=== PATIENT | male | born 1980 | race Caucasian/White ===

== ENCOUNTER 2016-11-30 11:36 | Inpatient (IN) | payer OTHER ==
[2016-11-30 12:06] VITALS: BMI 21.2
--- NOTE | 2016-11-30 13:21 | HP ---
CIWA Score - CIWA Score Nausea/Vomitin Muscle Tremors: 3 Anxiety: 3 Agitation: 3 Paroxysmal Sweats: 2 Orientation: 0-Oriented Tacttile Disturbances: 2-Mild Itch/Numbness/Burn Auditory Disturbances: 2-Mild Harshness/Frighten Visual Disturbances: 2-Mild Sensitivity Headache: 2-Mild CIWA-Ar Total Score: 22 Admission ROS BHS - HPI Chief Complaint: i need help to stop drinking alcohol,cocaine,pcp Allergies/Adverse Reactions: Allergies Allergy/AdvReac Type Severity Reaction Status Date / Time shrimp Allergy Severe Difficulty Verified 11/30/16 13:40 Breathing No Known Drug Allergies Allergy Verified 11/30/16 13:40 History of Present Illness: this 36 years old male with alcohol,cocaine and pcp dependence,withdrawal symptom,last detox 07/11 [place] syncope hypertension non compliance old fx of left hand asthma anxiety,depression,insomnia longest period of sobriety Exam Limitations: No Limitations - Ebola screening Have you traveled outside of the country in the last 21 days: No Have you had contact with anyone from an Ebola affected area: No Have you been sick,other than usual withdrawal symptoms: No Do you have a fever: No - Review of Systems Constitutional: Loss of Appetite, Malaise, Night Sweats, Changes in sleep, Unintentional Wgt. Loss EENT: reports: Nose Congestion Respiratory: reports: No Symptoms reported (asthma) Cardiac: reports: No Symptoms Reported GI: reports: Diarrhea, Nausea, Vomiting, Indigestion : reports: No Symptoms Reported Musculoskeletal: reports: Back Pain, Muscle Pain Integumentary: reports: Dryness Neuro: reports: Tremors Endocrine: reports: No Symptoms Reported Hematology: reports: No Symptoms Reported Psychiatric: reports: Anxious, Depressed (insomnia) Patient History - Patient Medical History Hx Anemia: No Hx Asthma: Yes (on vntolin inhaler) Hx Chronic Obstructive Pulmonary Disease (COPD): No Hx Cancer: No Hx Cardiac Disorders: No Hx Congestive Heart Failure: No Hx Hypertension: Yes (non compliance [facility] 2010) Hx Hypercholesterolemia: No Hx Pacemaker: No HX Cerebrovascular Accident: No Hx Seizures: No Hx Dementia: No Hx Diabetes: No Hx Gastrointestinal Disorders: No Hx Liver Disease: No Hx Genitourinary Disorders: No Hx Sexually Transmitted Disorders: No Hx Renal Disease (ESRD): No Hx Thyroid Disease: No Hx Human Immunodeficiency Virus (HIV): No (last 07/11 negative) Hx Hepatitis C: No Hx Depression: Yes (anxiety,insomnia) Hx Suicide Attempt: No Hx Bipolar Disorder: No Hx Schizophrenia: No Other Medical History: no suiidal,no homicidal,fx of left hand - Patient Surgical History Past Surgical History: Yes Hx Orthopedic Surgery: Yes (srgery for fx of left hand in [facility]) - PPD History Previous Implant?: Yes Documented Results: Negative w/o proof Implanted On Prior [facility] Admission?: No PPD to be Administered?: Yes - Smoking Cessation Smoking history: Current every day smoker Have you smoked in the past 12 months: Yes Aproximately how many cigarettes per day: 5 Cigars Per Day: 0 Hx Chewing Tobacco Use: No Initiated information on smoking cessation: Yes 'Breaking Loose' booklet given: 11/30/16 - Substance & Tx. History Hx Alcohol Use: Yes Hx Substance Use: Yes Substance Use Type: Alcohol, Cocaine Hx Substance Use Treatment: Yes (07/11 [facility]) - Substances Abused Alcohol Route: Oral Frequency: Daily Amount used: 6 of 24 ozs of beer Age of first use: 13 Date of Last Use: 11/29/16 Marijuana/Hashish Route: Smoking Frequency: 1-3 times last 30 days Amount used: 10$ Age of first use: 13 Date of Last Use: 11/29/16 PCP Route: Smoking Frequency: 1-3 times last 30 days Amount used: 10$ Age of first use: 27 Date of Last Use: 11/08/16 Family Disease History - Family Disease History Family Disease History: Other: Mother (alcohol) Admission Physical Exam BHS - Vital Signs Vital Signs: Vital Signs - 24 hr 11/30/16 11:55 Temperature 97.8 F Pulse Rate 75 Respiratory 18 Rate Blood Pressure 164/111 - Physical General Appearance: Yes: Moderate Distress, Tremorous, Irritable, Sweating, Anxious HEENTM: Yes: Rhinorrhea Respiratory: Yes: Lungs Clear Neck: Yes: Within Normal Limits Breast: Yes: Within Normal Limits Cardiology: Yes: Within Normal Limits, Regular Rhythm, Regular Rate, S1, S2 Abdominal: Yes: Within Normal Limits, Normal Bowel Sounds, Non Tender, Soft Genitourinary: Yes: Within Normal Limits Back: Yes: Muscle Spasm Musculoskeletal: Yes: Back pain, Muscle Pain Extremities: Yes: Tremors 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 NML intact, Fully Oriented, Alert, Motor Strength 5/5 Integumentary: Yes: Dry Lymphatic: Yes: Within Normal Limits - Diagnostic (1) Alcohol dependence with uncomplicated withdrawal Current Visit: Yes Status: Acute (2) Cannabis dependence Current Visit: Yes Status: Acute (3) Syncope Current Visit: Yes Status: Acute (4) Essential hypertension Current Visit: Yes Status: Acute (5) Nicotine dependence Current Visit: Yes Status: Acute (6) PCP (phencyclidine) abuse Current Visit: Yes Status: Acute (7) Anxiety and depression Current Visit: Yes Status: Acute (8) Insomnia Current Visit: Yes Status: Acute (9) Fracture of left hand Current Visit: Yes Status: Acute Cleared for Admission S - Detox or Rehab [facility] Level of Care: Medically Managed Detox Regimen/Protocol: Librium [facility] Breath Alcohol Content Breath Alcohol Content: 0.019 Urine Drug Screen - Results Drug Screen Negative: No Urine Drug Screen Results: THC-Marijuana
[2016-11-30] MEDS ORDERED: IBUPROFEN 400 MG TABLET (FP) PO PRN (14:20)
[2016-11-30] MEDS ORDERED: MAGNESIUM CITRATE 300 ML BOTTLE PO PRN (14:20)
[2016-11-30] MEDS ORDERED: P-EPHED 60MG/TRIPROLIDI 2.5MG TABLET PO PRN (14:20)
[2016-11-30] MEDS ORDERED: MAG HYDROX/AL HYDROX/SIMETH 30 ML UNIT-DOSE CUP PO PRN (14:20)
[2016-11-30] MEDS ORDERED: guaiFENesin/D-METHORPHAN HB 10 ML UNIT-DOSE CUPS PO PRN (14:20)
[2016-11-30] MEDS ORDERED: LOPERAMIDE HCL 2 MG CAPSULE PO PRN (14:20)
[2016-11-30] MEDS ORDERED: hydrOXYzine PAMOATE 50 MG CAPSULE (FP) PO PRN (14:20)
[2016-11-30] MEDS ORDERED: ACETAMINOPHEN 325 MG TABLET (FP) PO PRN (14:20)
[2016-11-30] MEDS ORDERED: MENTHOL/PHENOL 1 EACH UD MM PRN (14:20)
[2016-11-30] MEDS ORDERED: chlordiazePOXIDE HCL 25 MG CAPSULE PO PRN (14:20)
[2016-11-30] MEDS ORDERED: MAGNESIUM HYDROX 2400MG/30ML ORAL SUSPENSION 30 ML CUP PO PRN (14:20)
[2016-11-30] MEDS ORDERED: chlordiazePOXIDE HCL 25 MG CAPSULE PO ONE (15:10)
[2016-11-30] MEDS: amLODIPine BESYLATE 10 MG TABLET (FP) PO SCH (15:15)
[2016-11-30] MEDS: HYDROCHLOROTHIAZIDE 25 MG TABLET (FP) PO SCH (15:15)
[2016-11-30] MEDS: chlordiazePOXIDE HCL 25 MG CAPSULE PO SCH ×2 (17:14→22:30)
[2016-11-30 17:25] LABS: URINE APPEARANCE CLEAR; URINE BILIRUBIN NEGATIVE (NEGATIVE); URINE BLOOD NEGATIVE (NEGATIVE); URINE COLOR LTYELLOW; URINE GLUCOSE (UA) 3+ (NEGATIVE); URINE KETONE NEGATIVE (NEGATIVE); URINE LEUK ESTERASE NEGATIVE (NEGATIVE); URINE NITRITE NEGATIVE (NEGATIVE); URINE PROTEIN NEGATIVE (NEGATIVE); URINE UROBILINOGEN NEGATIVE E.U./dl (0.2-1.0)
[2016-11-30] MEDS ORDERED: cloNIDine HCL 0.1 MG TABLET PO PRN (20:28)
[2016-11-30] MEDS: THIAMINE HCL 100 MG TABLET (FP) PO SCH (22:30)
[2016-12-01 00:45] LABS: URINE APPEARANCE CLEAR; URINE BILIRUBIN NEGATIVE (NEGATIVE); URINE BLOOD NEGATIVE (NEGATIVE); URINE COLOR DKYELLOW; URINE GLUCOSE (UA) NEGATIVE (NEGATIVE); URINE KETONE NEGATIVE (NEGATIVE); URINE LEUK ESTERASE NEGATIVE (NEGATIVE); URINE NITRITE NEGATIVE (NEGATIVE); URINE UROBILINOGEN NEGATIVE E.U./dl (0.2-1.0)
[2016-12-01 00:56] LABS: URINE PROTEIN 1+ (NEGATIVE)
[2016-12-01 01:10] LABS: URINE HYALINE CAST 3 /lpf; URINE MUCUS MANY; URINE RBC <1 /hpf (0-3); URINE WBC 1 /hpf (3-5)
[2016-12-01] MEDS: chlordiazePOXIDE HCL 25 MG CAPSULE PO SCH ×4 (05:40→22:24)
[2016-12-01] MEDS: HYDROCHLOROTHIAZIDE 25 MG TABLET (FP) PO SCH (10:09)
[2016-12-01] MEDS: amLODIPine BESYLATE 10 MG TABLET (FP) PO SCH (10:09)
[2016-12-01] MEDS: PRENATAL VITAMINS W/ FOLIC ACID TABLET (FP) PO SCH (10:09)
[2016-12-01 10:25] LABS: ALBUMIN 4.2 g/dl (3.4-5.0); ALK PHOS 89 U/L (45-117); ANION GAP 10 (8-16); BILIRUBIN,TOTAL 0.4 mg/dL (0.2-1.0); CALCIUM 9.3 mg/dL (8.5-10.1); CO2 27 mmol/L (21-32); CREATININE 0.9 mg/dL (0.7-1.3); GLUCOSE,RANDOM 86 mg/dL (74-106); SGOT/AST 85 U/L (15-37); SGPT/ALT 103 U/L (12-78); TOT PROT 7.8 g/dl (6.4-8.2)
[2016-12-01 11:14] LABS: MCH 31.6 pg (25.7-33.7); MCHC 33.8 g/dl (32.0-35.9); MEAN CELL VOLUME 93.3 fl (80-96); MEAN PLT VOLUME 8.8 fl (7.5-11.1); PLATELET COUNT 297 K/MM3 (134-434); RDW 12.8 % (11.9-15.9); WHITE BLOOD COUNT 5.6 K/mm3 (4.0-10.0)
--- NOTE | 2016-12-01 12:07 | PN ---
S CIWA - CIWA Score Nausea/Vomitin-No Nausea/No Vomiting Muscle Tremors: 3 Anxiety: 4-Mod. Anxious/Guarded Agitation: 3 Paroxysmal Sweats: 3 Orientation: 0-Oriented Tacttile Disturbances: 0-None Auditory Disturbances: 0-None Visual Disturbances: 0-None Headache: 0-None Present CIWA-Ar Total Score: 13 BHS Progress Note (SOAP) Subjective: ANXIETY,TREMORS,SWEATING,INTERRUPTED SLEEP,RESTLESS Objective: 12/01/16 12:08 Vital Signs - 8 hr 12/01/16 12/01/16 06:10 09:35 Temperature 96.3 F L 95.8 F L Pulse Rate 81 72 Respiratory 18 20 Rate Blood Pressure 139/101 137/98 Laboratory Tests 11/30/16 12/01/16 12/01/16 15:00 00:30 06:00 WBC 5.6 RBC 4.71 Hgb 14.9 Hct 44.0 MCV 93.3 MCHC 33.8 RDW 12.8 Plt Count 297 MPV 8.8 Sodium Potassium Chloride Carbon Dioxide Anion Gap BUN Creatinine Creat Clearance w eGFR Random Glucose Calcium Total Bilirubin AST ALT Alkaline Phosphatase Total Protein Albumin Urine Color Ltyellow Dkyellow Urine Appearance Clear Clear Urine pH 7.0 5.0 D Ur Specific [place] 1.010 1.025 Urine Protein Negative 1+ H Urine Glucose (UA) 3+ H Negative Urine Ketones Negative Negative Urine Blood Negative Negative Urine Nitrite Negative Negative Urine Bilirubin Negative Negative Urine Urobilinogen Negative Negative Ur Leukocyte Esterase Negative Negative Urine RBC <1 Urine WBC 1 Ur Epithelial Cells Rare Hyaline Casts 3 Urine Mucus Many 12/01/16 06:00 WBC RBC Hgb Hct MCV MCHC RDW Plt Count MPV Sodium 141 Potassium 4.1 Chloride 104 Carbon Dioxide 27 Anion Gap 10 BUN 6 L Creatinine 0.9 Creat Clearance w eGFR > 60 Random Glucose 86 Calcium 9.3 Total Bilirubin 0.4 AST 85 H ALT 103 H Alkaline Phosphatase 89 Total Protein 7.8 Albumin 4.2 Urine Color Urine Appearance Urine pH Ur Specific [place] Urine Protein Urine Glucose (UA) Urine Ketones Urine Blood Urine Nitrite Urine Bilirubin Urine Urobilinogen Ur Leukocyte Esterase Urine RBC Urine WBC Ur Epithelial Cells Hyaline Casts Urine Mucus LABS NOTED Assessment: 12/01/16 12:08 WITHDRAWAL SX. Plan: CONTINUE DETOX
--- NOTE | 2016-12-01 15:44 | CONSULT ---
[facility] Psychiatric Consult - Data Date of interview: 12/01/16 Admission source: [facility] Identifying data: First admission to [facility] for this 36 y/o male seeking detox treatment on for alcohol and cocaine dependence.Patient is single,a father of two,homeless,unemployed and supported on food stamps. Substance Abuse History: - Smoking Cessation. Smoking history: Current every day smoker. Have you smoked in the past 12 months: Yes. Aproximately how many cigarettes per day: 5. Cigars Per Day: 0. Hx Chewing Tobacco Use: No. Initiated information on smoking cessation: Yes. 'Breaking Loose' booklet given : 11/30/16. - Substance & Tx. History. Hx Alcohol Use: Yes. Hx Substance Use : Yes. Substance Use Type: Alcohol, Cocaine. Hx Substance Use Treatment: Yes ( 07/11 [facility]). - Substances Abused. Alcohol. Route: Oral. Frequency : Daily. Amount used: 6 of 24 ozs of beer. Age of first use: 13. Date of Last Use: 11/29/16. Marijuana/Hashish. Route: Smoking. Frequency: 1-3 times last 30 days. Amount used: 10$. Age of first use: 13. Date of Last Use : 11/29/16. PCP. Route: Smoking. Frequency: 1-3 times last 30 days. Amount used: 10$. Age of first use: 27. Date of Last Use: 11/08/16. Confirmed by patient. Medical History: Significant for bronchial asthma,hypertensionwithdrawal related seizures and a history of orthosurgery for fracture of left hand. Psychiatric History: Patient reports a history of one psychiatric hospitalization in his lifetimeIt occurred four years ago in the context of a drug intoxication (kept for two days at [facility] because of agitation, paranoia and combative behavior).Discharged without medications,according to patient.Patient states that he is currently going through the intake process at [facility] [place].Awaiting formal evaluation by the psychiatrist.In the meantime,he is not on psychotropic medications.Mr Gates indicates his intent to abstain from prescribed psychotropic drugs until intake proces completed at [facility].No history of suicide attempts. Physical/Sexual Abuse/Trauma History: No reported history of sexual abuse.Stressors :homelessness,unemployment,strained interpersonal relationships, financial difficulties.Mr Gates indicates that his current social situation is a cause of stress/anxiety. Additional Comment: Urine Drug Screen Results: THC-Marijuana.Noted. Mental Status Exam - Mental Status Exam Alert and Oriented to: Time, Place Cognitive Function: Good Patient Appearance: Well Groomed Mood: Nervous, Anxious, Apprehensive Affect: Mood Congruent Patient Behavior: Fatigued, Talkative, Appropriate, Cooperative Speech Pattern: Clear, Appropriate Voice Loudness: Normal Thought Process: Goal Oriented Thought Disorder: Not Present Hallucinations: Denies Suicidal Ideation: Denies Homicidal Ideation: Denies Insight/Judgement: Poor Appetite: Good Muscle strength/Tone: Normal Gait/Station: Normal Psychiatric Findings - Problem List ([place] 1, 2,3) (1) Alcohol dependence with uncomplicated withdrawal Current Visit: Yes Status: Acute (2) Cannabis dependence Current Visit: Yes Status: Acute (3) Nicotine dependence Current Visit: Yes Status: Acute (4) PCP (phencyclidine) abuse Current Visit: Yes Status: Acute (5) Substance induced mood disorder Current Visit: Yes Status: Acute (6) Essential hypertension Current Visit: Yes Status: Chronic (7) Fracture of left hand Current Visit: Yes Status: Acute (8) Insomnia Current Visit: Yes Status: Chronic - Initial Treatment Plan Initial Treatment Plan: Psychoeducation.Detoxification.Observation.
[2016-12-01] MEDS: diphenhydrAMINE HCL 50 MG CAPSULE PO PRN (22:23)
[2016-12-01] MEDS: THIAMINE HCL 100 MG TABLET (FP) PO SCH (22:24)
[2016-12-02] MEDS: chlordiazePOXIDE HCL 25 MG CAPSULE PO SCH ×2 (05:48→10:09)
[2016-12-02] MEDS: HYDROCHLOROTHIAZIDE 25 MG TABLET (FP) PO SCH (10:09)
[2016-12-02] MEDS: amLODIPine BESYLATE 10 MG TABLET (FP) PO SCH (10:09)
[2016-12-02] MEDS: PRENATAL VITAMINS W/ FOLIC ACID TABLET (FP) PO SCH (10:09)
[2016-12-02] MEDS: chlordiazePOXIDE 5 MG CAPSULE PO SCH ×2 (17:12→22:23)
[2016-12-02] MEDS: diphenhydrAMINE HCL 50 MG CAPSULE PO PRN (22:23)
[2016-12-02] MEDS: THIAMINE HCL 100 MG TABLET (FP) PO SCH (22:23)
--- NOTE | 2016-12-02 23:24 | PN ---
[facility] CIWA - CIWA Score Nausea/Vomitin-No Nausea/No Vomiting Muscle Tremors: 3 Anxiety: 4-Mod. Anxious/Guarded Agitation: 3 Paroxysmal Sweats: 3 Orientation: 0-Oriented Tacttile Disturbances: 0-None Auditory Disturbances: 0-None Visual Disturbances: 0-None Headache: 0-None Present CIWA-Ar Total Score: 13 S Progress Note (SOAP) Subjective: ANXIETY,TREMORS,SWEATING,INTERRUPTED SLEEP,RESTLESS. Objective: 12/02/16 23:23 Vital Signs - 8 hr 12/02/16 20:07 Temperature 97.3 F L Pulse Rate 12 L Respiratory 72 H Rate Blood Pressure 122/72 Assessment: 12/02/16 23:24 Plan: CONTINUE DETOX
[2016-12-03] MEDS: chlordiazePOXIDE 5 MG CAPSULE PO SCH ×2 (05:21→10:29)
[2016-12-03] MEDS: amLODIPine BESYLATE 10 MG TABLET (FP) PO SCH (10:29)
[2016-12-03] MEDS: PRENATAL VITAMINS W/ FOLIC ACID TABLET (FP) PO SCH (10:29)
[2016-12-03] MEDS: HYDROCHLOROTHIAZIDE 25 MG TABLET (FP) PO SCH (10:30)
--- NOTE | 2016-12-03 15:50 | PN ---
BHS Progress Note (SOAP) Subjective: Anxiety, sweating, interrupted sleep Objective: 12/03/16 15:46 Last Vital Signs Temp Pulse Resp BP Pulse Ox 98.4 F 83 18 126/89 12/03/16 13:47 12/03/16 13:47 12/03/16 13:47 12/03/16 13:47 Laboratory Tests 11/30/16 12/01/16 12/01/16 15:00 00:30 06:00 WBC 5.6 RBC 4.71 Hgb 14.9 Hct 44.0 MCV 93.3 MCHC 33.8 RDW 12.8 Plt Count 297 MPV 8.8 Sodium Potassium Chloride Carbon Dioxide Anion Gap BUN Creatinine Creat Clearance w eGFR Random Glucose Calcium Total Bilirubin AST ALT Alkaline Phosphatase Total Protein Albumin Urine Color Ltyellow Dkyellow Urine Appearance Clear Clear Urine pH 7.0 5.0 D Ur Specific [place] 1.010 1.025 Urine Protein Negative 1+ H Urine Glucose (UA) 3+ H Negative Urine Ketones Negative Negative Urine Blood Negative Negative Urine Nitrite Negative Negative Urine Bilirubin Negative Negative Urine Urobilinogen Negative Negative Ur Leukocyte Esterase Negative Negative Urine RBC <1 Urine WBC 1 Ur Epithelial Cells Rare Hyaline Casts 3 Urine Mucus Many RPR Titer 12/01/16 12/01/16 06:00 06:00 WBC RBC Hgb Hct MCV MCHC RDW Plt Count MPV Sodium 141 Potassium 4.1 Chloride 104 Carbon Dioxide 27 Anion Gap 10 BUN 6 L Creatinine 0.9 Creat Clearance w eGFR > 60 Random Glucose 86 Calcium 9.3 Total Bilirubin 0.4 AST 85 H ALT 103 H Alkaline Phosphatase 89 Total Protein 7.8 Albumin 4.2 Urine Color Urine Appearance Urine pH Ur Specific [place] Urine Protein Urine Glucose (UA) Urine Ketones Urine Blood Urine Nitrite Urine Bilirubin Urine Urobilinogen Ur Leukocyte Esterase Urine RBC Urine WBC Ur Epithelial Cells Hyaline Casts Urine Mucus RPR Titer Nonreactive Labs noted Assessment: 12/03/16 15:48 Withdrawal symptoms Plan: Continue detox
[2016-12-03] MEDS: chlordiazePOXIDE HCL 10 MG CAPSULE PO SCH ×2 (17:28→22:17)
[2016-12-03] MEDS: diphenhydrAMINE HCL 50 MG CAPSULE PO PRN (22:17)
[2016-12-03] MEDS: THIAMINE HCL 100 MG TABLET (FP) PO SCH (22:17)
[2016-12-04] MEDS: chlordiazePOXIDE HCL 10 MG CAPSULE PO SCH (05:31)
[2016-12-04 10:10] VITALS: BP 143/95; PULSE 82; TEMP 97
--- NOTE | 2016-12-04 10:23 | DS ---
[facility] Detox Discharge Summary Admission Date: 11/30/16 Discharge Date: 12/04/16 - History Present History: Alcohol Dependence, Cannabis Dependence, Pcp Dependence Pertinent Past History: HTN - Physical Exam Results Vital Signs: Vital Signs Temperature 97.0 F L 12/04/16 10:06 Pulse Rate 82 12/04/16 10:06 Respiratory Rate 18 12/04/16 10:06 Blood Pressure 143/95 12/04/16 10:06 O2 Sat by Pulse Oximetry (%) Pertinent Admission Physical Exam Findings: WITHDRAWAL SX. Laboratory Last Values WBC 5.6 K/mm3 (4.0-10.0) 12/01/16 06:00 RBC 4.71 M/mm3 (4.00-5.60) 12/01/16 06:00 Hgb 14.9 GM/dL (11.7-16.9) 12/01/16 06:00 Hct 44.0 % (35.4-49) 12/01/16 06:00 MCV 93.3 fl (80-96) 12/01/16 06:00 MCHC 33.8 g/dl (32.0-35.9) 12/01/16 06:00 RDW 12.8 % (11.9-15.9) 12/01/16 06:00 Plt Count 297 K/MM3 (134-434) 12/01/16 06:00 MPV 8.8 fl (7.5-11.1) 12/01/16 06:00 Sodium 141 mmol/L (136-145) 12/01/16 06:00 Potassium 4.1 mmol/L (3.5-5.1) 12/01/16 06:00 Chloride 104 mmol/L (98-107) 12/01/16 06:00 Carbon Dioxide 27 mmol/L (21-32) 12/01/16 06:00 Anion Gap 10 (8-16) 12/01/16 06:00 BUN 6 mg/dL (7-18) L 12/01/16 06:00 Creatinine 0.9 mg/dL (0.7-1.3) 12/01/16 06:00 Creat Clearance w eGFR > 60 (>60) 12/01/16 06:00 Random Glucose 86 mg/dL (74-106) 12/01/16 06:00 Calcium 9.3 mg/dL (8.5-10.1) 12/01/16 06:00 Total Bilirubin 0.4 mg/dL (0.2-1.0) 12/01/16 06:00 AST 85 U/L (15-37) H 12/01/16 06:00 ALT 103 U/L (12-78) H 12/01/16 06:00 Alkaline Phosphatase 89 U/L (45-117) 12/01/16 06:00 Total Protein 7.8 g/dl (6.4-8.2) 12/01/16 06:00 Albumin 4.2 g/dl (3.4-5.0) 12/01/16 06:00 Urine Color Dkyellow 12/01/16 00:30 Urine Appearance Clear 12/01/16 00:30 Urine pH 5.0 (5.0-8.0) D 12/01/16 00:30 Ur Specific [place] 1.025 (1.001-1.035) 12/01/16 00:30 Urine Protein 1+ (NEGATIVE) H 12/01/16 00:30 Urine Glucose (UA) Negative (NEGATIVE) 12/01/16 00:30 Urine Ketones Negative (NEGATIVE) 12/01/16 00:30 Urine Blood Negative (NEGATIVE) 12/01/16 00:30 Urine Nitrite Negative (NEGATIVE) 12/01/16 00:30 Urine Bilirubin Negative (NEGATIVE) 12/01/16 00:30 Urine Urobilinogen Negative E.U./dl (0.2-1.0) 12/01/16 00:30 Ur Leukocyte Esterase Negative (NEGATIVE) 12/01/16 00:30 Urine RBC <1 /hpf (0-3) 12/01/16 00:30 Urine WBC 1 /hpf (3-5) 12/01/16 00:30 Ur Epithelial Cells Rare /hpf (FEW) 12/01/16 00:30 Hyaline Casts 3 /lpf 12/01/16 00:30 Urine Mucus Many 12/01/16 00:30 RPR Titer Nonreactive (NONREACTIVE) 12/01/16 06:00 LABS NOTED - Treatment Hospital Course: Detox Protocol Followed, Detoxed Safely, Responded well, Discharged Condition Good, Rehab Referral Accepted - Medication Discharge Medications: Ambulatory Orders Amlodipine Besylate [Norvasc -] 10 mg PO DAILY 11/30/16 Hydrochlorothiazide [Hctz -] 25 mg PO DAILY 11/30/16 - Diagnosis (1) Alcohol dependence with uncomplicated withdrawal Current Visit: Yes Status: Acute (2) Nicotine dependence Current Visit: Yes Status: Acute Qualifiers: Nicotine product type: cigarettes Substance use status: uncomplicated Qualified Code(s): F17.210 - Nicotine dependence, cigarettes, uncomplicated (3) PCP (phencyclidine) abuse Current Visit: Yes Status: Acute (4) Essential hypertension Current Visit: Yes Status: Chronic (5) Substance induced mood disorder Current Visit: Yes Status: Acute - AMA Did Patient Leave Against Medical Advice: No
--- NOTE | 2016-12-06 09:45 | EKG ---
Test Reason : Blood Pressure : / mmHG Vent. Rate : 072 BPM Atrial Rate : 072 BPM P-R Int : 130 ms QRS Dur : 078 ms QT Int : 380 ms P-R-T Axes : 050 018 045 degrees QTc Int : 416 ms NORMAL SINUS RHYTHM NONSPECIFIC ST ABNORMALITY ABNORMAL ECG NO PREVIOUS ECGS AVAILABLE Confirmed by SABA DAVIS, WESTON ([id number]) on 12/06/2016 9:45:09 AM Referred By: Jared Perez Confirmed By:WESTON WALTER MD
== END 2016-12-04 10:46 | disposition home or self-care (01) | DRG 775 ==
LOC: YASAS 11:36 → Y3N 14:00
PROVIDERS: ADMIT Internal Medicine; ATTEND Internal Medicine
PROC: HZ2ZZZZ Detoxification Services for Substance Abuse Treatment (ICD-10-PCS; principal; 2016-11-30)
DX: F10.230 Alcohol dependence with withdrawal, uncomplicated (principal); F12.20 Cannabis dependence, uncomplicated; F16.10 Hallucinogen abuse, uncomplicated; F17.210 Nicotine dependence, cigarettes, uncomplicated; F19.24 Other psychoactive substance dependence with psychoactive substance-induced mood disorder; F41.8 Other specified anxiety disorders; G47.00 Insomnia, unspecified; I10 Essential (primary) hypertension; J45.909 Unspecified asthma, uncomplicated; Z86.69 Personal history of other diseases of the nervous system and sense organs; Z86.79 Personal history of other diseases of the circulatory system; Z91.14 Patient's other noncompliance with medication regimen; Z87.81 Personal history of (healed) traumatic fracture
CPT/HCPCS: 36415; 80053; 81003; 81015; 85027; 86593; 93005; 93010

== ENCOUNTER 2019-10-13 11:52 | Inpatient (IN) | payer OTHER ==
[2019-10-13 13:26] VITALS: BMI 22.5
--- NOTE | 2019-10-13 14:28 | HP ---
CIWA Score Nausea/Vomitin-No Nausea/No Vomiting Muscle Tremors: 3 Anxiety: 3 Agitation: 2 Paroxysmal Sweats: 3 Orientation: 0-Oriented Tacttile Disturbances: 2-Mild Itch/Numbness/Burn Auditory Disturbances: 0-None Visual Disturbances: 0-None Headache: 1-Very Mild CIWA-Ar Total Score: 14 - Admission Criteria OASAS Guidelines: Admission for Medically Managed Detox: Requires at least one of the followin. CIWA greater than 12 2. Seizures within the past 24 hours 3. Delirium tremens within the past 24 hours 4. Hallucinations within the past 24 hours 5. Acute intervention needed for co occurring medical disorder 6. Acute intervention needed for co occurring psychiatric disorder 7. Severe withdrawal that cannot be handled at a lower level of care (continued vomiting, continued diarrhea, abnormal vital signs) requiring intravenous medication and/or fluids 8. Admitting History and Physical - Admission History of Present Illness: Pt is a 38 yo M with PMHx of HTN, asthma, anxiety, depression, here for ETOH detox, For the past 4 months has been working on being sober since he has been living with his Girlfriend. In 2016 when he was here in [facility] detox for , After 2016 he could not get rehab beds [place] WENT BACK TO STREETS AND WAS smoking weed, PCP, xanax, percocet, at [facility] did detox and rehab was clean for 09/27 year 2018 was nt not drinking as much Was in outpt, called [facility]- for 1 year beginning of 2017 Got PPD, [facility], HIV neg, STD neg Jul 2019 ETOH Last weekend was last drink 4-6 beers a day, over weekends Has been drinking daily for past 2 weeks Drank entire weekend Drinking since middle august had been clean for about a month Started trying to take BP meds- for past 2 weeks-HCTZ, folic acid, Multivite, diltiazem Pharmacy-[facility]-Dr Annie lópez Has his own meds on him Had seizures- Blackouts in past-last one summer 2017 Nicotine Smoking from 26 years 2 packs over 1 week and 1 hqlf Marijauna Smokes 2ce a week Started at 13 years Stopped in late twenties, restarted at 35yrs surgery Hx: Had sx 2010, on middle finger MCP joint for fracture Had fracture of L Ulnar/5th finger 2016- torn ligament of Lfoot Torn ligament on RLE ankle after a fall on street Social Hx Has not worked in 6months, 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 Currently has no stable place to stay, with grandma intermittently No current problems with law, Last in Skilled Nursing 2018 for possession of weed Child support issue in court for outstanding paternity test Pt kicked out of grandmas house, 4 months with GF, intermittently Child support for kids debated as his/not FHX of ETOH use disorder History Source: Patient, Medical Record Limitations to Obtaining History: No Limitations - Past Medical History Pulmonary: Yes: Asthma Psych: Yes: Addictions, Anxiety, Depression - Smoking History Smoking history: Current every day smoker Have you smoked in the past 12 months: Yes Aproximately how many cigarettes per day: 5 - Alcohol/Substance Use Hx Alcohol Use: Yes History of Substance Use: reports: Marijuana - Social History Usual Living Arrangement: Yes: With Significant Other, Other (With Gma) Do you think of yourself as: Straight/Heterosexual ADL: Independent Admission [facility] - HPI Allergies/Adverse Reactions: Allergies Allergy/AdvReac Type Severity Reaction Status Date / Time shrimp Allergy Severe Difficulty Verified 10/13/19 13:22 Breathing No Known Drug Allergies Allergy Verified 10/13/19 13:22 - Ebola screening Have you traveled outside of the country in the last 21 days: No Have you had contact with anyone from an Ebola affected area: No Do you have a fever: No - Review of Systems Constitutional: No Symptoms Reported EENT: reports: No Symptoms Reported Respiratory: reports: No Symptoms reported Cardiac: reports: No Symptoms Reported GI: reports: No Symptoms Reported : reports: No Symptoms Reported Musculoskeletal: reports: Joint Pain Integumentary: reports: No Symptoms Reported Neuro: reports: No Symptoms reported Endocrine: reports: No Symptoms Reported Hematology: reports: No Symptoms Reported Psychiatric: reports: Agitated, Anxious, Depressed Patient History - Patient Medical History Hx Anemia: No Hx Asthma: Yes (on vntolin inhaler) Hx Chronic Obstructive Pulmonary Disease (COPD): No Hx Cancer: No Hx Cardiac Disorders: No Hx Congestive Heart Failure: No Hx Hypertension: Yes (non compliance [facility] 2010) Hx Hypercholesterolemia: No Hx Pacemaker: No HX Cerebrovascular Accident: No Hx Seizures: No Hx Dementia: No Hx Diabetes: No Hx Gastrointestinal Disorders: No Hx Liver Disease: No Hx Genitourinary Disorders: No Hx Sexually Transmitted Disorders: No Hx Renal Disease (ESRD): No Hx Thyroid Disease: No Hx Human Immunodeficiency Virus (HIV): No (last 07/11 negative) Hx Hepatitis C: No Hx Depression: Yes (anxiety,insomnia) Hx Suicide Attempt: No Hx Bipolar Disorder: No Hx Schizophrenia: No - Patient Surgical History Past Surgical History: Yes Hx Neurologic Surgery: No Hx Cataract Extraction: No Hx Cardiac Surgery: No Hx Lung Surgery: No Hx Breast Surgery: No Hx Breast Biopsy: No Hx Abdominal Surgery: No Hx Appendectomy: No Hx Cholecystectomy: No Hx Genitourinary Surgery: No Hx Section: No Hx Orthopedic Surgery: Yes (srgery for fx of left hand in [facility] [place], operated by [facility]) Hx Hysterectomy: No Anesthesia Reaction: No - PPD History Previous Implant?: Yes Date: 12/02/16 - Reproductive History Patient is a Female of Child Bearing Age (11 -55 yrs old): No - Smoking Cessation Smoking history: Current every day smoker Have you smoked in the past 12 months: Yes Aproximately how many cigarettes per day: 5 Cigars Per Day: 0 Hx Chewing Tobacco Use: No Initiated information on smoking cessation: Yes 'Breaking Loose' booklet given: 10/13/19 - Substance & Tx. History Hx Alcohol Use: Yes Hx Substance Use: Yes Substance Use Type: Alcohol, Marijuana Hx Substance Use Treatment: Yes - Substances abused Alcohol Substance route: Oral Frequency: Daily Amount used: 6-7 beers 22oz Age of first use: 13 Date of last use: 10/06/19 Marijuana/Hashish Substance route: Smoking Frequency: Daily Amount used: 1 blunt Age of first use: 14 Date of last use: 10/11/19 Admission Physical Exam BHS - Vital Signs Vital Signs: Vital Signs - 24 hr 10/13/19 13:24 Temperature 97.9 F Pulse Rate 88 Respiratory 20 Rate Blood Pressure 138/93 - Physical General Appearance: Yes: Tremorous, Anxious HEENTM: Yes: Within Normal Limits Respiratory: Yes: Chest Non-Tender, Lungs Clear, Normal Breath Sounds Neck: Yes: Within Normal Limits Breast: Yes: Breast Exam Deferred Cardiology: Yes: Within Normal Limits Abdominal: Yes: Within Normal Limits Genitourinary: Yes: Within Normal Limits Back: Yes: Within Normal Limits Musculoskeletal: Yes: Within Normal Limits Extremities: Yes: Within Normal Limits Neurological: Yes: Within Normal Limits Integumentary: Yes: Within Normal Limits - Diagnostic (1) Alcohol dependence with uncomplicated withdrawal Current Visit: No Status: Acute Urine Drug Screen - Test Device Lot number: [id number] Expiration date: 06/24/21 - Control Is test valid?: Yes - Results Drug screen NEGATIVE: No Urine drug screen results: THC-Marijuana Inpatient Rehab Admission - Rehab Decision to Admit Inpatient rehab admission?: No
--- NOTE | 2019-10-13 14:41 | PN ---
Teaching Attending Note Name of Resident: Sue Rockwell ATTENDING PHYSICIAN STATEMENT I saw and evaluated the patient. I reviewed the resident's note and discussed the case with the resident. I agree with the resident's findings and plan as documented. SUBJECTIVE:38 yo with h/o binge use alcohol disorder, does not drink NERY- 0 Utox- THC pos OBJECTIVE: Vital Signs - 24 hr 10/13/19 13:24 Temperature 97.9 F Pulse Rate 88 Respiratory 20 Rate Blood Pressure 138/93 tremulous agitated ASSESSMENT AND PLAN: AUD- alcohol detox protocol
[2019-10-13] MEDS ORDERED: IBUPROFEN 400 MG TABLET (FP) PO PRN (15:06)
[2019-10-13] MEDS ORDERED: METHOCARBAMOL 500 MG TABLET PO PRN (15:06)
[2019-10-13] MEDS ORDERED: MENTHOL/PHENOL 1 EACH UD MM PRN (15:06)
[2019-10-13] MEDS ORDERED: MELATONIN 5 MG TABLETS PO PRN (15:06)
[2019-10-13] MEDS ORDERED: MAGNESIUM HYDROX 2400MG/30ML ORAL SUSPENSION 30 ML CUP PO PRN (15:06)
[2019-10-13] MEDS ORDERED: hydrOXYzine PAMOATE 25 MG CAPSULE (FP) PO PRN (15:06)
[2019-10-13] MEDS ORDERED: ACETAMINOPHEN 325 MG TABLET (FP) PO PRN ×2 (15:06)
[2019-10-13] MEDS ORDERED: BISMUTH SUBSALICYLATE 262 MG/15 ML BTL PO PRN (15:06)
[2019-10-13] MEDS ORDERED: MAGNESIUM CITRATE 300 ML BOTTLE PO PRN (15:06)
[2019-10-13] MEDS ORDERED: LORazepam 1 MG TABLET PO PRN (15:06)
[2019-10-13] MEDS ORDERED: MAG HYDROX/AL HYDROX/SIMETH 30 ML UNIT-DOSE CUP PO PRN (15:06)
[2019-10-13] MEDS: HYDROCHLOROTHIAZIDE 25 MG TABLET (FP) PO SCH (16:37)
[2019-10-13] MEDS: LORazepam 2 MG TABLET PO SCH ×2 (16:38→22:01)
[2019-10-13] MEDS: THIAMINE HCL 100 MG TABLET (FP) PO SCH (22:01)
[2019-10-14] MEDS: LORazepam 2 MG TABLET PO SCH ×4 (05:51→22:20)
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
[2019-10-14 09:51] LABS: HEMATOCRIT 41.6 % (35.4-49); HEMOGLOBIN 14.1 GM/dL (11.7-16.9); MCH 31.3 pg (25.7-33.7); MCHC 33.8 g/dl (32.0-35.9); MEAN CELL VOLUME 92.4 fl (80-96); MEAN PLT VOLUME 9.4 fl (7.5-11.1); PLATELET COUNT 266 K/MM3 (134-434); WHITE BLOOD COUNT 6.1 K/mm3 (4.0-10.0)
--- NOTE | 2019-10-14 10:10 | PN ---
S CIWA - CIWA Score Nausea/Vomitin-No Nausea/No Vomiting Muscle Tremors: 2 Anxiety: 2 Agitation: 2 Paroxysmal Sweats: No Perspiration Orientation: 0-Oriented Tacttile Disturbances: 1-Very Mild Itch/Numbness Auditory Disturbances: 0-None Visual Disturbances: 0-None Headache: 2-Mild CIWA-Ar Total Score: 9 BHS Progress Note (SOAP) Subjective: alert,irritable,anxious,interrupted sleep,tremor Objective: 10/14/19 10:09 Vital Signs Temperature 97.2 F L 10/14/19 06:40 Pulse Rate 68 10/14/19 06:40 Respiratory Rate 18 10/14/19 06:40 Blood Pressure 120/63 10/14/19 06:40 O2 Sat by Pulse Oximetry (%) Assessment: 10/14/19 10:09 Laboratory Last Values WBC 6.1 K/mm3 (4.0-10.0) 10/14/19 08:00 RBC 4.50 M/mm3 (4.00-5.60) 10/14/19 08:00 Hgb 14.1 GM/dL (11.7-16.9) 10/14/19 08:00 Hct 41.6 % (35.4-49) 10/14/19 08:00 MCV 92.4 fl (80-96) 10/14/19 08:00 MCH 31.3 pg (25.7-33.7) 10/14/19 08:00 MCHC 33.8 g/dl (32.0-35.9) 10/14/19 08:00 RDW 13.0 % (11.9-15.9) 10/14/19 08:00 Plt Count 266 K/MM3 (134-434) 10/14/19 08:00 MPV 9.4 fl (7.5-11.1) 10/14/19 08:00 labs pending 10/14/19 10:09 withdrawal symptom Plan: continue detox ativan regimen
[2019-10-14 10:14] LABS: ALBUMIN 3.8 g/dl (3.4-5.0); BILIRUBIN,TOTAL 0.5 mg/dL (0.2-1); CALCIUM 9.9 mg/dL (8.5-10.1); CREATININE 0.9 mg/dL (0.55-1.3); TOT PROT 6.9 g/dl (6.4-8.2)
[2019-10-14] MEDS: PRENATAL VITAMINS W/ FOLIC ACID TABLET (FP) PO SCH (10:49)
[2019-10-14] MEDS: HYDROCHLOROTHIAZIDE 25 MG TABLET (FP) PO SCH (10:50)
[2019-10-14] MEDS: THIAMINE HCL 100 MG TABLET (FP) PO SCH (22:20)
[2019-10-15] MEDS: LORazepam 1 MG TABLET PO SCH ×4 (05:56→22:17)
[2019-10-15] MEDS: HYDROCHLOROTHIAZIDE 25 MG TABLET (FP) PO SCH (10:31)
[2019-10-15] MEDS: PRENATAL VITAMINS W/ FOLIC ACID TABLET (FP) PO SCH (10:31)
--- NOTE | 2019-10-15 11:11 | PN ---
S CIWA - CIWA Score Nausea/Vomitin-Mild Nausea/No Vomiting Muscle Tremors: 2 Anxiety: 2 Agitation: 2 Paroxysmal Sweats: No Perspiration Orientation: 0-Oriented Tacttile Disturbances: 1-Very Mild Itch/Numbness Auditory Disturbances: 0-None Visual Disturbances: 0-None Headache: 1-Very Mild CIWA-Ar Total Score: 9 S Progress Note (SOAP) Subjective: alert,irritable,anxious,interrupted sleep,pain in the body Objective: 10/15/19 11:10 Vital Signs Temperature 96.3 F L 10/15/19 09:28 Pulse Rate 102 H 10/15/19 09:28 Respiratory Rate 18 10/15/19 09:28 Blood Pressure 142/91 10/15/19 09:28 O2 Sat by Pulse Oximetry (%) Laboratory Last Values WBC 6.1 K/mm3 (4.0-10.0) 10/14/19 08:00 RBC 4.50 M/mm3 (4.00-5.60) 10/14/19 08:00 Hgb 14.1 GM/dL (11.7-16.9) 10/14/19 08:00 Hct 41.6 % (35.4-49) 10/14/19 08:00 MCV 92.4 fl (80-96) 10/14/19 08:00 MCH 31.3 pg (25.7-33.7) 10/14/19 08:00 MCHC 33.8 g/dl (32.0-35.9) 10/14/19 08:00 RDW 13.0 % (11.9-15.9) 10/14/19 08:00 Plt Count 266 K/MM3 (134-434) 10/14/19 08:00 MPV 9.4 fl (7.5-11.1) 10/14/19 08:00 Sodium 140 mmol/L (136-145) 10/14/19 08:00 Potassium 4.0 mmol/L (3.5-5.1) 10/14/19 08:00 Chloride 104 mmol/L (98-107) 10/14/19 08:00 Carbon Dioxide 29 mmol/L (21-32) 10/14/19 08:00 Anion Gap 7 MMOL/L (8-16) L 10/14/19 08:00 BUN 23.0 mg/dL (7-18) H 10/14/19 08:00 Creatinine 0.9 mg/dL (0.55-1.3) 10/14/19 08:00 Est GFR (CKD-EPI)AfAm 124.26 10/14/19 08:00 Est GFR (CKD-EPI)NonAf 107.21 10/14/19 08:00 Random Glucose 97 mg/dL (74-106) 10/14/19 08:00 Calcium 9.9 mg/dL (8.5-10.1) 10/14/19 08:00 Total Bilirubin 0.5 mg/dL (0.2-1) 10/14/19 08:00 AST 21 U/L (15-37) 10/14/19 08:00 ALT 29 U/L (13-61) 10/14/19 08:00 Alkaline Phosphatase 60 U/L (45-117) 10/14/19 08:00 Total Protein 6.9 g/dl (6.4-8.2) 10/14/19 08:00 Albumin 3.8 g/dl (3.4-5.0) 10/14/19 08:00 RPR Titer Nonreactive (NONREACTIVE) 10/14/19 08:00 Assessment: 10/15/19 11:11 withdrawal symptom Plan: continue detox ,ativan regimen,bun 23,probably dehydration,encourage oral fluid
[2019-10-15] MEDS: THIAMINE HCL 100 MG TABLET (FP) PO SCH (22:17)
[2019-10-16] MEDS ORDERED: LORazepam 0.5 MG TABLET PO PRN
[2019-10-16] MEDS: LORazepam 0.5 MG TABLET PO SCH ×4 (05:44→22:10)
[2019-10-16] MEDS: PRENATAL VITAMINS W/ FOLIC ACID TABLET (FP) PO SCH (10:47)
[2019-10-16] MEDS: HYDROCHLOROTHIAZIDE 25 MG TABLET (FP) PO SCH (10:47)
--- NOTE | 2019-10-16 11:58 | PN ---
S CIWA - CIWA Score Nausea/Vomitin-No Nausea/No Vomiting Muscle Tremors: 1-None Visible, but [place] Anxiety: 1-Mildly Anxious Agitation: 1-Slight > Activity Paroxysmal Sweats: No Perspiration Orientation: 0-Oriented Tacttile Disturbances: 1-Very Mild Itch/Numbness Auditory Disturbances: 0-None Visual Disturbances: 0-None Headache: 1-Very Mild CIWA-Ar Total Score: 5 BHS Progress Note (SOAP) Subjective: alert,irritable,anxious,interrupted sleep Objective: 10/16/19 11:57 Vital Signs Temperature 98.1 F 10/16/19 11:08 Pulse Rate 79 10/16/19 11:08 Respiratory Rate 18 10/16/19 11:08 Blood Pressure 144/91 10/16/19 11:08 O2 Sat by Pulse Oximetry (%) Assessment: 10/16/19 11:57 withdrawal symptom Plan: continue detox ativan regimen,discharge in am
[2019-10-16] MEDS: THIAMINE HCL 100 MG TABLET (FP) PO SCH (22:10)
[2019-10-17] MEDS ORDERED: LORazepam 0.5 MG TABLET PO ONE (05:00)
--- NOTE | 2019-10-17 08:42 | DS ---
[facility] Detox Discharge Summary Admission Date: 10/13/19 Discharge Date: 10/17/19 - History Present History: Alcohol Dependence, Cannabis Dependence, Pcp Dependence - Physical Exam Results Vital Signs: Vital Signs Temperature 97.5 F L 10/17/19 06:00 Pulse Rate 64 10/17/19 06:00 Respiratory Rate 18 10/17/19 06:00 Blood Pressure 142/80 10/17/19 06:00 O2 Sat by Pulse Oximetry (%) Pertinent Admission Physical Exam Findings: pt arrived in withdrawals Vital Signs Temperature 97.5 F L 10/17/19 06:00 Pulse Rate 64 10/17/19 06:00 Respiratory Rate 18 10/17/19 06:00 Blood Pressure 142/80 10/17/19 06:00 O2 Sat by Pulse Oximetry (%) Laboratory Tests 10/14/19 10/14/19 10/14/19 08:00 08:00 08:00 WBC 6.1 RBC 4.50 Hgb 14.1 Hct 41.6 MCV 92.4 MCH 31.3 MCHC 33.8 RDW 13.0 Plt Count 266 MPV 9.4 Sodium 140 Potassium 4.0 Chloride 104 Carbon Dioxide 29 Anion Gap 7 L BUN 23.0 H Creatinine 0.9 Est GFR (CKD-EPI)AfAm 124.26 Est GFR (CKD-EPI)NonAf 107.21 Random Glucose 97 Calcium 9.9 Total Bilirubin 0.5 AST 21 ALT 29 Alkaline Phosphatase 60 Total Protein 6.9 Albumin 3.8 RPR Titer Nonreactive today pt is aaox3 ambulating no acute distress - Treatment Hospital Course: Detox Protocol Followed, Detoxed Safely, Responded well, Discharged Condition Good, Rehab Referral Accepted Patient has Accepted a Rehab Referral to: pt declined rehab; referral provided - Medication Discharge Medications: Ambulatory Orders Hydrochlorothiazide [Hctz -] 25 mg PO DAILY 11/30/16 Folic Acid 1 mg PO DAILY 10/13/19 Multivitamins [Tab-A-Vit -] 1 tab PO DAILY 10/13/19 - Diagnosis (1) Substance-induced anxiety disorder Current Visit: Yes Status: Acute (2) Substance-induced sleep disorder Current Visit: Yes Status: Acute (3) Asthma Current Visit: Yes Status: Chronic Qualifiers: Asthma severity: mild Asthma persistence: unspecified (4) Alcohol related seizure Current Visit: Yes Status: Resolved (5) Alcohol dependence with uncomplicated withdrawal Current Visit: No Status: Acute (6) Anxiety and depression Current Visit: Yes Status: Chronic (7) Cannabis dependence Current Visit: Yes Status: Chronic (8) Fracture of left hand Current Visit: No Status: Acute (9) PCP (phencyclidine) abuse Current Visit: Yes Status: Chronic (10) Substance induced mood disorder Current Visit: No Status: Acute (11) Syncope Current Visit: No Status: Acute (12) Essential hypertension Current Visit: No Status: Chronic (13) Insomnia Current Visit: No Status: Chronic (14) Nicotine dependence Current Visit: No Status: Chronic Qualifiers: Nicotine product type: cigarettes Substance use status: uncomplicated Qualified Code(s): F17.210 - Nicotine dependence, cigarettes, uncomplicated - AMA Did Patient Leave Against Medical Advice: No
[2019-10-17 09:41] VITALS: BP 122/91; PULSE 106; TEMP 97.3
== END 2019-10-17 08:55 | disposition home or self-care (01) | DRG 775 ==
LOC: YASAS 11:52 → Y6N 15:31
PROVIDERS: ADMIT Allergy & Immunology; ATTEND Allergy & Immunology
PROC: HZ2ZZZZ Detoxification Services for Substance Abuse Treatment (ICD-10-PCS; principal; 2019-10-13)
DX: F10.230 Alcohol dependence with withdrawal, uncomplicated (principal); F16.20 Hallucinogen dependence, uncomplicated; F12.20 Cannabis dependence, uncomplicated; F17.210 Nicotine dependence, cigarettes, uncomplicated; F19.280 Other psychoactive substance dependence with psychoactive substance-induced anxiety disorder; F19.282 Other psychoactive substance dependence with psychoactive substance-induced sleep disorder; F19.24 Other psychoactive substance dependence with psychoactive substance-induced mood disorder; F41.8 Other specified anxiety disorders; F32.9 Major depressive disorder, single episode, unspecified; G40.509 Epileptic seizures related to external causes, not intractable, without status epilepticus; J45.20 Mild intermittent asthma, uncomplicated; I10 Essential (primary) hypertension; G47.00 Insomnia, unspecified; Z91.013 Allergy to seafood
CPT/HCPCS: 36415; 80053; 85027; 86593